=== PATIENT | male | born 1955 | race Caucasian/White ===

== ENCOUNTER 2019-04-18 08:39 | Day surgery (SDC) | payer OTHER ==
[2019-04-15 11:06] VITALS: BMI 26.4
--- NOTE | 2019-04-18 07:48 | OP ---
Operative Note - Note: Operative Date: 04/18/19 Pre-Operative Diagnosis: Right medial and lateral meniscus tears Operation: Right partial medial and lateral meniscectomies Post-Operative Diagnosis: Same as Pre-op Surgeon: William Todd Anesthesia: General Operative Report Dictated: Yes
[2019-04-18] MEDS ORDERED: oxyCODONE HCL 5 MG TABLET PO PRN (08:55)
[2019-04-18] MEDS ORDERED: ONDANSETRON 4 MG/2 ML VIAL IVPUSH PRN (08:55)
[2019-04-18] MEDS ORDERED: ceFAZolin SODIUM 1 GM VIAL ONE (08:58)
[2019-04-18] MEDS ORDERED: PROPOFOL 20 ML ONE ×2 (08:58→08:59)
[2019-04-18] MEDS ORDERED: MIDAZOLAM HCL 2 MG/2 ML SINGLE DOSE VIAL ONE ×2 (08:58→09:04)
[2019-04-18] MEDS ORDERED: DEXAMETHASONE SOD PHOSPHATE 4 MG/1 ML VIAL ONE (08:58)
[2019-04-18] MEDS ORDERED: SUCCINYLCHOLINE CHLORIDE 200 MG/10 ML SYRINGE ONE (08:59)
[2019-04-18] MEDS ORDERED: LIDOCAINE HCL/PF 2% SDV 5ML VIAL ONE (08:59)
[2019-04-18] MEDS ORDERED: SODIUM CHLORIDE 0.9% P/F 10 ML VIAL IJ ONE (08:59)
[2019-04-18] MEDS ORDERED: EPHEDRINE SULFATE/0.9% NACL/PF 50 MG/10 ML SYRINGE NR ONE (09:00)
[2019-04-18] MEDS ORDERED: LACTATED RINGERS SOLUTION 1,000 ML IV SCH (09:00)
[2019-04-18] MEDS ORDERED: BUPIVACAINE HCL/PF 2.5 MG/ML - 30 ML VIAL IJ ONE (09:20)
[2019-04-18] MEDS ORDERED: EPINEPHrine 1:1,000 1 MG/1 ML - 30ML VIAL (INJECTION) ONE (09:20)
[2019-04-18] MEDS ORDERED: KETOROLAC TROMETHAMINE 30 MG/1 ML VIAL ONE (10:21)
--- NOTE | 2019-04-18 11:33 | OP ---
DATE OF OPERATION: 04/18/2019 POSTOPERATIVE DIAGNOSIS: Right knee medial and lateral meniscal tear. POSTOPERATIVE DIAGNOSIS: Right knee medial and lateral meniscal tear. PROCEDURE: Right knee arthroscopy with partial medial and lateral meniscectomy. SURGEON: William Shafer MD [employer] SUPERVISOR: PILO Elise ANESTHESIA: General. POSTOPERATIVE CONDITION: Stable. COMPLICATIONS: None. BLOOD LOSS: Minimal. INDICATIONS: This is a pleasant gentleman who is suffering from right knee discomfort and instability. MRI demonstrated medial and lateral meniscal tears. Treatment options discussed including nonoperative versus operative management. Operative risks were reviewed including bleeding, infection, neurovascular injury, need for further surgery, postoperative pain and stiffness, progression of osteoarthritis. We discussed medical risks such as heart attack, stroke, DVT, PE, and . I addressed the use of perioperative antibiotic and DVT prophylaxis. I reviewed the risk of postoperative progression of osteoarthritis. We discussed the rehabilitation protocol. I addressed all of the patient's questions and concerns. He voiced understanding and elected to proceed. DESCRIPTION OF PROCEDURE: The patient was brought to the operating room where general anesthetic was administered. The right lower extremity was prepped and draped in the usual sterile fashion. A preoperative dose of antibiotics was given, and the usual time-out procedure was performed. The portal sites were then marked out. The skin was injected subcutaneously with 0.25% Marcaine. A lateral portal was now established, and the arthroscope was passed into the knee. Examination of the patellofemoral joint demonstrated superficial fraying of the articular surfaces of both the patella and trochlea. Passing the arthroscope into the notch demonstrated intact ACL and PCL. The arthroscope was now passed into the medial compartment. Here, there was some mild fraying about the medial aspect of the medial femoral condyle and plateau but only minimal articular wear in the majority of the medial compartment. Meniscus was examined demonstrating a tear in the posterior horn. A medial portal was now established under spinal needle localization. The tear was seen to encompass the undersurface of the posterior horn extending into the body. Utilizing a biter as well as a shaver, the meniscus was debrided down to a stable base. The arthroscope was now passed in the lateral compartment. The articular surfaces demonstrated moderate partial-thickness chondral loss. There was a very large flap extending along the body and posterior horn, which was flipped over itself and into the compartment. Utilizing the biter as well as shaver, this too was debrided down to a stable base. At this point, the excess fluid was withdrawn from the knee. The portals were sutured using 3-0 nylon. Sterile dressings were placed. Patient was extubated and transferred to the recovery room in stable condition. WILLIAM SHAFER M.D. MOI/[id number]
[2019-04-18] MEDS ORDERED: oxyCODONE HCL 5 MG TABLET ONE (12:06)
[2019-04-18 13:57] VITALS: TEMP 97.5
[2019-04-18 14:00] VITALS: PULSE 51
[2019-04-18 14:18] VITALS: BP 122/81
== END 2019-04-18 12:45 | disposition home or self-care (01) ==
LOC: FASU 08:39
PROVIDERS: ATTEND Orthopaedic Surgery Sports Medicine
PROC: 0SBC4ZZ Excision of Right Knee Joint, Percutaneous Endoscopic Approach (ICD-10-PCS; 2019-04-18)
PROC: 0SBC4ZZ Excision of Right Knee Joint, Percutaneous Endoscopic Approach (ICD-10-PCS; principal; 2019-04-18 10:05)
DX: S83.241A Other tear of medial meniscus, current injury, right knee, initial encounter (principal); S83.281A Other tear of lateral meniscus, current injury, right knee, initial encounter; X58.XXXA Exposure to other specified factors, initial encounter; Y93.9 Activity, unspecified; Y92.9 Unspecified place or not applicable
CPT/HCPCS: 82962; 94760